=== PATIENT | female | born 1970 | race Two or more races ===

== ENCOUNTER 2017-07-08 01:48 | Emergency (ER) | payer MEDICAID ==
[~2017-07-08] VITALS: Ht 175.3 cm; Wt 72.7 kg
[~2017-07-08 01:48] MED LIST: AMLO5TAB PO; ASPI-1264 PO; LISI-232 PO; NO HOME MEDS
[2017-07-08] MEDS ORDERED: LISI10TA4 PO (02:11)
[2017-07-08] MEDS ORDERED: lisinopril 10 MG tablet PO ONE (02:15)
[2017-07-08 02:25] VITALS: BP 163/89
== END 2017-07-08 02:27 | disposition home or self-care (01) ==
LOC: ER 01:49
DX: I11.0 Hypertensive heart disease with heart failure (principal); I50.9 Heart failure, unspecified; F15.90 Other stimulant use, unspecified, uncomplicated; F12.90 Cannabis use, unspecified, uncomplicated; F17.200 Nicotine dependence, unspecified, uncomplicated; Z79.82 Long term (current) use of aspirin
CPT/HCPCS: 99283

== ENCOUNTER 2017-08-24 17:27 | Emergency (ER) | payer OTHER, MEDICAID ==
[~2017-08-24] VITALS: Ht 175.3 cm; Wt 78.0 kg
[~2017-08-24 17:27] MED LIST changes: +LISI10TA4 PO
[2017-08-24 17:29] VITALS: BP 157/135
== END 2017-08-24 18:15 | disposition home or self-care (01) ==
LOC: ER 17:28
DX: M54.5 Low back pain (principal); M25.512 Pain in left shoulder; I11.0 Hypertensive heart disease with heart failure; I50.9 Heart failure, unspecified; F12.10 Cannabis abuse, uncomplicated; F15.10 Other stimulant abuse, uncomplicated; Z79.82 Long term (current) use of aspirin
CPT/HCPCS: 99281

== ENCOUNTER 2017-10-13 23:01 | Emergency (ER) | payer MEDICAID ==
[~2017-10-13] VITALS: Ht 175.3 cm; Wt 70.5 kg
[~2017-10-13 23:01] MED LIST changes: +CYCL-1 PO
[2017-10-14] MEDS ORDERED: amoxicillin 250mg capsule PO ONE (01:40)
[2017-10-14] MEDS ORDERED: TETanus/Pertussis (Acell)/Diphther VAC/PF (Tdap-Adult) 0.5ml syringe IMVAC ONE (01:40)
[2017-10-14] MEDS ORDERED: LIDOcaine 1.5% w/epinephrine 1:200,000 5ml ampul IJ ONE (01:40)
[2017-10-14] MEDS ORDERED: bacitracin 15gm ointment TP ONE (01:40)
[2017-10-14] MEDS ORDERED: ibuprofen tablet 400 MG TABLET PO ONE (01:45)
[2017-10-14] MEDS ORDERED: AMOX500C2 PO (02:53)
[2017-10-14 03:13] VITALS: BP 195/125
== END 2017-10-14 03:26 | disposition home or self-care (01) ==
LOC: ER 23:02
DX: S61.257A Open bite of left little finger without damage to nail, initial encounter (principal); I11.0 Hypertensive heart disease with heart failure; I50.9 Heart failure, unspecified; F12.10 Cannabis abuse, uncomplicated; F15.10 Other stimulant abuse, uncomplicated; Z79.899 Other long term (current) drug therapy; W50.3XXA Accidental bite by another person, initial encounter; Y93.89 Activity, other specified; Y92.89 Other specified places as the place of occurrence of the external cause; Y99.8 Other external cause status
CPT/HCPCS: 12001; 73140; 90471; 90715; 99284; A6257; A6449; J3490

== ENCOUNTER 2017-10-18 01:00 | Emergency (ER) | payer MEDICAID ==
[~2017-10-18] VITALS: Ht 175.3 cm; Wt 65.1 kg
[~2017-10-18 01:00] MED LIST changes: +AMOX500C2 PO
[2017-10-18 02:25] VITALS: BP 168/95
[2017-10-18] MEDS ORDERED: iohexol 350MG/ML 100ml bottle IV ONE (02:58)
== END 2017-10-18 02:27 | disposition home or self-care (01) ==
LOC: ER 01:01
DX: S61.257D Open bite of left little finger without damage to nail, subsequent encounter (principal); F12.10 Cannabis abuse, uncomplicated; F15.10 Other stimulant abuse, uncomplicated; I10 Essential (primary) hypertension; Z79.82 Long term (current) use of aspirin; Z79.899 Other long term (current) drug therapy; W50.3XXD Accidental bite by another person, subsequent encounter
CPT/HCPCS: 29130; 99283; J7030; Q9967

== ENCOUNTER 2017-11-14 01:03 | Emergency (ER) | payer MEDICAID ==
[~2017-11-14] VITALS: Ht 175.3 cm; Wt 69.0 kg
[2017-11-14] MEDS ORDERED: FURO-150 PO (01:21)
[2017-11-14] MEDS ORDERED: POTA10TA19 PO (01:22)
[2017-11-14] MEDS ORDERED: lisinopril 10 MG tablet PO ONE (02:55)
[2017-11-14] MEDS ORDERED: LISI-600 PO (03:48)
[2017-11-14] MEDS ORDERED: METR500T4 PO (03:48)
[2017-11-14] MEDS ORDERED: CEPH500C5 PO (03:48)
[2017-11-14 04:06] VITALS: BP 199/125
== END 2017-11-14 04:08 | disposition home or self-care (01) ==
LOC: ER 01:03
DX: L03.012 Cellulitis of left finger (principal); N76.0 Acute vaginitis; A59.9 Trichomoniasis, unspecified; I11.0 Hypertensive heart disease with heart failure; I50.9 Heart failure, unspecified; F32.9 Major depressive disorder, single episode, unspecified; F17.200 Nicotine dependence, unspecified, uncomplicated; F12.90 Cannabis use, unspecified, uncomplicated; F15.90 Other stimulant use, unspecified, uncomplicated; Z79.82 Long term (current) use of aspirin; Z79.2 Long term (current) use of antibiotics; Z79.899 Other long term (current) drug therapy
CPT/HCPCS: 36415; 87210; 87491; 93005; 99285

== ENCOUNTER 2017-11-22 13:52 | Emergency (ER) | payer MEDICAID ==
[~2017-11-22] VITALS: Ht 175.3 cm; Wt 71.5 kg
[~2017-11-22 13:52] MED LIST changes: -AMOX500C2 PO; +CEPH500C5 PO; -CYCL-1 PO; +FURO-150 PO; -LISI-232 PO; +LISI-600 PO; +METR500T4 PO; -NO HOME MEDS; +POTA10TA19 PO
[2017-11-22 15:34] VITALS: BP 134/76
[2017-11-22] MEDS ORDERED: METR500T4 PO (16:07)
[2017-11-22] MEDS ORDERED: SULF1TAB49 PO (16:17)
== END 2017-11-22 16:23 | disposition home or self-care (01) ==
LOC: ER 13:52
DX: M86.8X4 Other osteomyelitis, hand (principal); N89.8 Other specified noninflammatory disorders of vagina; I50.9 Heart failure, unspecified; I11.0 Hypertensive heart disease with heart failure; F12.90 Cannabis use, unspecified, uncomplicated; F15.90 Other stimulant use, unspecified, uncomplicated; Z79.82 Long term (current) use of aspirin; Z79.899 Other long term (current) drug therapy; Z79.2 Long term (current) use of antibiotics
CPT/HCPCS: 73140; 99284

== ENCOUNTER 2017-12-01 11:06 | Outpatient (CLI) | payer MEDICAID ==
[~2017-12-01 11:06] MED LIST changes: +SULF1TAB49 PO
[2017-12-01 11:11] VITALS: BP 185/130
== END 2017-12-01 12:00 | disposition home or self-care (01) ==
LOC: ORTHO 11:06
PROVIDERS: ATTEND Nurse Practitioner Family
DX: S68.118A Complete traumatic metacarpophalangeal amputation of other finger, initial encounter (principal); I11.0 Hypertensive heart disease with heart failure; I50.9 Heart failure, unspecified; F32.9 Major depressive disorder, single episode, unspecified; F17.210 Nicotine dependence, cigarettes, uncomplicated; X58.XXXA Exposure to other specified factors, initial encounter; Y93.89 Activity, other specified; Y92.89 Other specified places as the place of occurrence of the external cause; Y99.8 Other external cause status
CPT/HCPCS: 99213

== ENCOUNTER 2017-12-15 11:04 | Outpatient (CLI) | payer MEDICAID ==
[~2017-12-15 11:04] MED LIST changes: -SULF1TAB49 PO
== END 2017-12-15 14:50 | disposition home or self-care (01) ==
LOC: ORTHO 11:04
PROVIDERS: ATTEND Nurse Practitioner Family
DX: S68.117D Complete traumatic metacarpophalangeal amputation of left little finger, subsequent encounter (principal); M86.9 Osteomyelitis, unspecified; I11.0 Hypertensive heart disease with heart failure; I50.9 Heart failure, unspecified; F32.9 Major depressive disorder, single episode, unspecified; F17.210 Nicotine dependence, cigarettes, uncomplicated; F15.90 Other stimulant use, unspecified, uncomplicated; Z72.89 Other problems related to lifestyle; X58.XXXD Exposure to other specified factors, subsequent encounter
CPT/HCPCS: 73140; 99213

== ENCOUNTER 2018-04-13 18:38 | Emergency (ER) | payer MEDICAID ==
[~2018-04-13] VITALS: Ht 175.3 cm; Wt 74.5 kg
[~2018-04-13 18:38] MED LIST changes: -LISI-600 PO
[2018-04-13] MEDS ORDERED: METR500T4 PO (20:30)
[2018-04-13] MEDS ORDERED: metroNIDAZOLE 500mg tablet PO ONE (20:35)
[2018-04-13 20:38] VITALS: BP 162/123
== END 2018-04-13 20:40 | disposition home or self-care (01) ==
LOC: ER 18:38
DX: N89.8 Other specified noninflammatory disorders of vagina (principal); R10.2 Pelvic and perineal pain; I11.0 Hypertensive heart disease with heart failure; I50.9 Heart failure, unspecified; F15.90 Other stimulant use, unspecified, uncomplicated; Z79.82 Long term (current) use of aspirin; Z79.899 Other long term (current) drug therapy
CPT/HCPCS: 87210; 99283; J3490

== ENCOUNTER 2023-07-16 20:22 | Emergency (ER) | payer MEDICAID ==
[~2023-07-16] VITALS: Ht 172.7 cm; Wt 75.0 kg
[~2023-07-16 20:22] MED LIST changes: -CEPH500C5 PO; +LISI10TA27 PO; -LISI10TA4 PO; +METR-159 PO; -METR500T4 PO; +POTA-192 PO; -POTA10TA19 PO
[2023-07-16 20:30] VITALS: BP 189/120; PULSE 83; RESP 16; TEMP 98.6; O2SAT 98
[2023-07-16] MEDS ORDERED: METR-159 PO (21:39)
== END 2023-07-16 22:55 | disposition home or self-care (01) ==
LOC: ER 20:23
DX: N76.0 Acute vaginitis (principal); Z79.82 Long term (current) use of aspirin; Z79.899 Other long term (current) drug therapy
CPT/HCPCS: 87210; 99283; 99284